=== PATIENT | female | born 1970 | race Native Hawaiian/Other Pacific Islander ===

== ENCOUNTER 2017-10-08 18:10 | Emergency (ER) | payer OTHER ==
[~2017-10-08] VITALS: Ht 172.7 cm; Wt 112.0 kg
[2017-10-08 18:10] VITALS: TEMP 98
[2017-10-08 18:38] LABS: PLATELET COUNT 304 K/uL (152-353)
[2017-10-08 18:44] LABS: POTASSIUM 3.6 mmol/L (3.6-5.2)
[2017-10-08 19:10] VITALS: BP 133/60
[2017-10-09] MEDS ORDERED: MEDROXYPROG150 MG/ML IM (03:52)
[2017-10-09] MEDS ORDERED: FLUOXETINE40 MG PO (03:53)
[2017-10-09] MEDS ORDERED: METF500T PO (03:54)
[2017-10-09] MEDS ORDERED: GEODON60 MG PO (03:54)
[2017-10-09] MEDS ORDERED: ARTIFICIA2 IO (03:56)
[2017-10-09] MEDS ORDERED: RISP1TAB PO (03:57)
[2017-10-09] MEDS ORDERED: OLANZAPINE15 M1 PO (03:58)
[2017-10-09] MEDS ORDERED: XALATAN0.005 % OP (03:59)
[2017-10-09] MEDS ORDERED: MAPAP325 MG PO ×2 (04:01→04:02)
[2017-10-09] MEDS ORDERED: LITHIUM CARBON300 MG PO (04:04)
[2017-10-09] MEDS ORDERED: LITHIUM CARB300 MG PO (04:05)
[2017-10-09] MEDS ORDERED: OMEPRAZOLE20 M1 PO (04:06)
[2017-10-09] MEDS ORDERED: WELLBUTRIN200 MG PO (04:08)
[2017-10-09] MEDS ORDERED: NEURONTIN 100M100 MG PO (04:09)
[2017-10-09] MEDS ORDERED: LAMICTAL100 MG PO (04:11)
[2017-10-09] MEDS ORDERED: OYSTER CALCIUM/1 TAB PO (04:11)
[2017-10-09] MEDS ORDERED: LIPITOR10 MG PO (04:12)
[2017-10-09] MEDS ORDERED: NOVOLIN R U-1001 ML SC (04:17)
[2017-10-22] MEDS ORDERED: LORA2INJ21 IM (09:48)
[2017-10-22] MEDS ORDERED: LAMO100T PO (09:48)
[2017-10-22] MEDS ORDERED: GABA100C2 PO (09:48)
[2017-10-22] MEDS ORDERED: BUPR150T PO (09:48)
[2017-10-22] MEDS ORDERED: ZIPR80CA PO (09:48)
[2017-10-22] MEDS ORDERED: OLANZAPINE10 MG PO (09:48)
[2017-10-22] MEDS ORDERED: MAGNSUS68 PO (09:48)
[2017-10-22] MEDS ORDERED: HALO5INJ3 IM (09:48)
== END 2017-10-08 19:10 | disposition other institution (70) ==
LOC: ED 18:10
DX: Z04.6 Encounter for general psychiatric examination, requested by authority (principal); R45.851 Suicidal ideations; F25.9 Schizoaffective disorder, unspecified
CPT/HCPCS: 36415; 80053; 81000; 85027; 93005; 99285

== ENCOUNTER 2018-10-18 17:15 | Emergency (ER) | payer OTHER ==
[~2018-10-18] VITALS: Ht 172.7 cm; Wt 92.5 kg
[~2018-10-18 17:15] MED LIST: ARTIFICIA2 IO; BUPR150T PO; FLUOXETINE40 MG PO; GABA100C2 PO; GEODON60 MG PO; HALO5INJ3 IM; LAMICTAL100 MG PO; LAMO100T PO; LIPITOR10 MG PO; LITHIUM CARB300 MG PO; LITHIUM CARBON300 MG PO; LORA2INJ21 IM; MAGNSUS68 PO; MAPAP325 MG PO; MEDROXYPROG150 MG/ML IM; METF500T PO; NEURONTIN 100M100 MG PO; NOVOLIN R U-1001 ML SC; OLANZAPINE10 MG PO; OLANZAPINE15 M1 PO; OMEPRAZOLE20 M1 PO; OYSTER CALCIUM/1 TAB PO; RISP1TAB PO; WELLBUTRIN200 MG PO; XALATAN0.005 % OP; ZIPR80CA PO
[2018-10-18 17:36] LABS: PLATELET COUNT 308 K/uL (152-353)
[2018-10-18 17:43] LABS: POTASSIUM 4.1 mmol/L (3.6-5.2)
[2018-10-18 18:35] VITALS: BP 155/84; TEMP 98.1
[2018-10-18] MEDS ORDERED: VENLAFAXINE150 M1 PO (21:55)
[2018-10-18] MEDS ORDERED: BENZ1TAB43 PO (21:56)
[2018-10-18] MEDS ORDERED: [UNRECOGNIZED DRUG - OTHER] PO (21:57)
[2018-10-18] MEDS ORDERED: HYDROXYZINE HYD50 MG PO (21:59)
== END 2018-10-18 18:35 | disposition other institution (70) ==
LOC: ED 17:15
PROVIDERS: Student in an Organized Health Care Education/Training Program
DX: F20.89 Other schizophrenia (principal); Z04.6 Encounter for general psychiatric examination, requested by authority
CPT/HCPCS: 80053; 80178; 81000; 85027; 93005; 99285

== ENCOUNTER 2019-01-13 17:15 | Emergency (ER) | payer OTHER ==
[~2019-01-13] VITALS: Ht 170.2 cm; Wt 127.0 kg
[~2019-01-13 17:15] MED LIST changes: +ARIPIPRAZOLE10 MG PO; +BENZ1TAB43 PO; +CARB200T42 PO; +CHOL100034 PO; +ESCI10TA PO; +HYDROXYZINE HYD50 MG PO; +LITHIUM CARB150 MG PO; +MULTTAB52 PO; +VENLAFAXINE150 M1 PO; +[UNRECOGNIZED DRUG - OTHER] PO
[2019-01-13 17:57] LABS: PLATELET COUNT 291 K/uL (152-353)
[2019-01-13 17:59] LABS: POTASSIUM 3.7 mmol/L (3.6-5.2)
[2019-01-13 18:20] VITALS: BP 136/79; TEMP 97.9
[2019-01-13] MEDS ORDERED: LAMICTAL200 MG PO (19:46)
[2019-01-13] MEDS ORDERED: FEXOFENADINE HC60 MG PO (19:47)
[2019-01-13] MEDS ORDERED: FIORICET 50-3001 CAP PO (19:49)
[2019-01-19] MEDS ORDERED: BENZ1TAB43 PO (08:21)
[2019-01-19] MEDS ORDERED: ZIPR20CA PO (08:23)
[2019-01-19] MEDS ORDERED: ZIPR80CA PO (08:24)
== END 2019-01-13 18:20 | disposition other institution (70) ==
LOC: ED 17:19
PROVIDERS: Emergency Medicine
DX: R45.851 Suicidal ideations (principal); F25.0 Schizoaffective disorder, bipolar type; Z04.6 Encounter for general psychiatric examination, requested by authority
CPT/HCPCS: 80053; 81000; 85027; 93005; 99285

== ENCOUNTER 2019-09-06 15:16 | Emergency (ER) | payer OTHER ==
[~2019-09-06] VITALS: Ht 170.2 cm; Wt 117.5 kg
[~2019-09-06 15:16] MED LIST changes: +ABILIFY MYCITE20 MG PO; +BUPROPION HYDR100 M2 PO; +FEXOFENADINE HC60 MG PO; +FIORICET 50-3001 CAP PO; +HYDR50CA21 PO; +LAMICTAL150 MG PO; +LAMICTAL200 MG PO; +LITH300C3 PO; +LITHIUM CARB300 M1 PO; +MELATONIN3 M1 PO; +SERT100T PO; +ZIPR20CA PO
[2019-09-06 15:37] LABS: PLATELET COUNT 287 K/uL (152-353)
[2019-09-06 15:47] LABS: POTASSIUM 3.8 mmol/L (3.6-5.2)
[2019-09-06 17:14] VITALS: BP 151/74; TEMP 98.7
[2019-09-06] MEDS ORDERED: VENL37.511 PO (18:36)
[2019-09-06] MEDS ORDERED: METF500T PO (18:38)
[2019-09-06] MEDS ORDERED: BENZ1TAB43 PO (18:39)
[2019-09-06] MEDS ORDERED: SEROQUEL50 MG PO (18:40)
[2019-09-06] MEDS ORDERED: SEROQUEL25 MG PO (18:41)
[2019-09-06] MEDS ORDERED: HYDR25CA25 PO (18:41)
[2019-09-06] MEDS ORDERED: ZIPR80CA PO (18:42)
== END 2019-09-06 17:14 | disposition other institution (70) ==
LOC: ED 15:16
PROVIDERS: Family Medicine
DX: Z04.6 Encounter for general psychiatric examination, requested by authority (principal); F91.8 Other conduct disorders; F20.89 Other schizophrenia; Z11.59 Encounter for screening for other viral diseases
CPT/HCPCS: 80053; 81000; 85027; 87635; 93005; 99283; U00003

== ENCOUNTER 2019-11-04 20:03 | Emergency (ER) | payer OTHER ==
[~2019-11-04] VITALS: Ht 165.1 cm; Wt 116.1 kg
[~2019-11-04 20:03] MED LIST changes: +HYDR25CA25 PO; +QUET100T2 PO; +QUET300T PO; +SEROQUEL25 MG PO; +SEROQUEL50 MG PO; +VENL37.511 PO
[2019-11-04 20:57] LABS: POTASSIUM 3.5 mmol/L (3.6-5.2)
[2019-11-04 20:58] LABS: PLATELET COUNT 314 K/uL (152-353)
[2019-11-04 21:45] VITALS: BP 145/80; TEMP 99.1
[2019-11-05] MEDS ORDERED: CLON0.5T36 PO (02:09)
[2019-11-05] MEDS ORDERED: ALLERGY10 M1 PO (02:33)
== END 2019-11-04 21:50 | disposition other institution (70) ==
LOC: ED 20:03
PROVIDERS: Family Medicine
DX: R46.89 Other symptoms and signs involving appearance and behavior (principal); F25.8 Other schizoaffective disorders; F22 Delusional disorders; Z11.59 Encounter for screening for other viral diseases; Z04.6 Encounter for general psychiatric examination, requested by authority
CPT/HCPCS: 36415; 80053; 81000; 85027; 87635; 93005; 99283; G2023; U0003

== ENCOUNTER 2020-09-13 13:12 | Emergency (ER) | payer OTHER ==
[~2020-09-13] VITALS: Ht 172.7 cm; Wt 123.8 kg
[~2020-09-13 13:12] MED LIST changes: +ALLERGY10 M1 PO; +CLON0.5T36 PO; +CLOZ100T PO; +VRAYLAR6 MG PO
[2020-09-13 13:46] LABS: PLATELET COUNT 295 K/uL (152-353)
[2020-09-13 13:47] LABS: POTASSIUM 3.6 mmol/L (3.6-5.2)
[2020-09-13 14:50] VITALS: BP 134/75; TEMP 98.1
[2020-09-13] MEDS ORDERED: LAMICTAL100 MG PO (15:32)
[2020-09-13] MEDS ORDERED: GNP MELATONIN MA5 MG PO (15:33)
[2020-09-13] MEDS ORDERED: MIRALAX17 GM PO (15:34)
[2020-09-13] MEDS ORDERED: MOBIC7.5 M1 PO (15:35)
[2020-09-13] MEDS ORDERED: PRAZ1CAP16 PO (15:36)
[2020-09-13] MEDS ORDERED: PANTOPRAZOLE 40MG TA PO (15:39)
[2020-09-13] MEDS ORDERED: FLUOXETINE20 M1 PO (15:40)
[2020-09-13] MEDS ORDERED: SENNA8.6 MG PO (15:40)
[2020-09-13] MEDS ORDERED: QUET100T2 PO (15:41)
[2020-09-13] MEDS ORDERED: SEROQUEL200 MG PO (15:42)
[2020-09-13] MEDS ORDERED: ZIPR20CA PO (15:45)
[2020-09-13] MEDS ORDERED: LITHIUM CARB450 MG PO (15:46)
[2020-09-13] MEDS ORDERED: CLON1TAB18 PO (15:48)
[2020-09-13] MEDS ORDERED: RISPERDAL4 MG PO (15:48)
[2020-09-13] MEDS ORDERED: CLARITIN10 MG PO (15:51)
[2020-09-13] MEDS ORDERED: TRAM50TA PO (15:53)
[2020-09-13] MEDS ORDERED: HYDR25CA25 PO (15:54)
== END 2020-09-13 14:50 | disposition still patient (30) ==
LOC: ED 13:12
PROVIDERS: Hospitalist
DX: F32.89 Other specified depressive episodes (principal); R45.851 Suicidal ideations; Z11.52 Encounter for screening for COVID-19; Z04.6 Encounter for general psychiatric examination, requested by authority
CPT/HCPCS: 80053; 80156; 81000; 85027; 87635; 93005; 96372; 99283; J1885; U0003

== ENCOUNTER 2021-01-11 15:12 | Emergency (ER) | payer OTHER ==
[~2021-01-11] VITALS: Ht 172.7 cm; Wt 120.7 kg
[~2021-01-11 15:12] MED LIST changes: +ABILIFY 10MG TAB PO; +CLARITIN10 MG PO; +CLON1TAB18 PO; +FLUOXETINE20 M1 PO; +GNP MELATONIN MA5 MG PO; +LITHIUM CARB450 MG PO; +MIRALAX17 GM PO; +MOBIC7.5 M1 PO; +NORTRIPTYLIN25 MG PO; +ONDA4TAB3 PO; +OXCARBAZEPIN300 MG PO; +PANTOPRAZOLE 40MG TA PO; +PRAZ1CAP16 PO; +RISPERDAL4 MG PO; +SENNA8.6 MG PO; +SEROQUEL200 MG PO; +TRAM50TA PO
[2021-01-11 15:17] VITALS: TEMP 97.5
[2021-01-11 15:41] LABS: PLATELET COUNT 271 K/uL (152-353)
[2021-01-11 16:09] LABS: POTASSIUM 3.7 mmol/L (3.6-5.2)
[2021-01-11 16:45] VITALS: BP 175/90
[2021-01-12] MEDS ORDERED: TRAZODONE HYDRO50 MG PO (06:04)
[2021-01-12] MEDS ORDERED: HALO5TAB10 PO (06:05)
[2021-01-12] MEDS ORDERED: HYDROXYZINE HYD25 MG PO (06:07)
[2021-01-12] MEDS ORDERED: QUETIAPINE100 MG PO (06:11)
[2021-01-12] MEDS ORDERED: RISPERDAL3 MG PO (06:12)
[2021-01-12] MEDS ORDERED: OLANZAPINE10 M2 PO (06:16)
[2021-01-12] MEDS ORDERED: CLON1TAB18 PO (09:12)
== END 2021-01-11 16:45 | disposition still patient (30) ==
LOC: ED 15:12
PROVIDERS: Hospitalist
DX: F25.8 Other schizoaffective disorders (principal); R44.0 Auditory hallucinations; Z11.52 Encounter for screening for COVID-19; Z04.6 Encounter for general psychiatric examination, requested by authority
CPT/HCPCS: 80053; 81000; 84484; 85027; 87635; 93005; 96372; 99283; J1815; U0003

== ENCOUNTER 2021-10-23 17:17 | Emergency (ER) | payer OTHER ==
[~2021-10-23] VITALS: Ht 160 cm; Wt 125.2 kg
[~2021-10-23 17:17] MED LIST changes: +HALO5TAB10 PO; +HYDROXYZINE HYD25 MG PO; +OLANZAPINE10 M2 PO; +PALI3TAB PO; +PRAZOSIN HCL1 MG PO; +QUETIAPINE100 MG PO; +RISPERDAL3 MG PO; +TRAZODONE HYDRO50 MG PO
[2021-10-23 17:31] VITALS: BP 161/82; TEMP 98.9
[2021-10-23 18:23] LABS: PLATELET COUNT 295 K/uL (152-353)
[2021-10-23 18:28] LABS: POTASSIUM 3.8 mmol/L (3.6-5.2)
[2021-10-23] MEDS ORDERED: CLARITIN10 M1 PO (21:42)
[2021-10-23] MEDS ORDERED: HALO5TAB10 PO (21:43)
[2021-10-23] MEDS ORDERED: MIRALAX17 GM PO (21:43)
[2021-10-23] MEDS ORDERED: MOBIC7.5 M1 PO (21:44)
[2021-10-23] MEDS ORDERED: MULTIVITAMI1 PO (21:44)
[2021-10-23] MEDS ORDERED: PALIPERIDONE ER9 MG PO (21:45)
[2021-10-23] MEDS ORDERED: PANTOPRAZOLE 40MG TA PO (21:46)
[2021-10-23] MEDS ORDERED: PRAZOSIN HYDROCH5 MG PO (21:47)
[2021-10-23] MEDS ORDERED: SENNA LAX8.6 MG PO (21:47)
[2021-10-23] MEDS ORDERED: TRAZODONE HYDR100 MG PO (21:48)
[2021-10-23] MEDS ORDERED: ARTIFICIA7 OPTH (21:49)
[2021-10-23] MEDS ORDERED: BENZTROPINE2 MG PO (21:50)
[2021-10-23] MEDS ORDERED: CLON1TAB18 PO (21:50)
[2021-10-23] MEDS ORDERED: METFORMIN HYDR500 M1 PO (21:51)
[2021-10-23] MEDS ORDERED: TRILEPTAL300 MG PO (21:52)
[2021-10-23] MEDS ORDERED: DICLOFENAC SODIUM1 % TOP (21:54)
[2021-10-23] MEDS ORDERED: [UNRECOGNIZED DRUG - OTHER] PO (21:55)
[2021-10-23] MEDS ORDERED: TRAM50TA PO (21:56)
== END 2021-10-23 19:08 | disposition still patient (30) ==
LOC: ED 17:17
PROVIDERS: Emergency Medicine Emergency Medical Services
DX: R45.851 Suicidal ideations (principal); F25.8 Other schizoaffective disorders; Z11.52 Encounter for screening for COVID-19; Z04.6 Encounter for general psychiatric examination, requested by authority
CPT/HCPCS: 80053; 81002; 85027; 87635; 93005; 99284; U0003

== ENCOUNTER 2022-03-26 21:23 | Emergency (ER) | payer OTHER ==
[~2022-03-26] VITALS: Ht 170.2 cm; Wt 116.1 kg
[~2022-03-26 21:23] MED LIST changes: +ACET-206 PO; +ARTIFICIA7 OPTH; +Artificial Tears 0.2 OPTH; +BENZTROPINE2 MG PO; +CLARITIN10 M1 PO; +CONGENTIN 1MG TAB PO; +DICLOFENAC SODIUM1 % TOP; +LORA10TA3 PO; +MELOXICAM7.5 MG PO; +METFORMIN HYDR500 M1 PO; +MULTIVITAMI1 PO; +PALIPERIDONE ER9 MG PO; +PRAZOSIN HYDROCH5 MG PO; +SENNA LAX8.6 MG PO; +SERT50TA PO; +TRAZ50TA36 PO; +TRAZODONE HYDR100 MG PO; +TRILEPTAL300 MG PO; +Voltaren GEL 1% 100G TOP; +[UNRECOGNIZED DRUG - OTHER] PO
[2022-03-26 21:30] VITALS: TEMP 97.6
[2022-03-26 22:43] LABS: PLATELET COUNT 257 K/uL (152-353)
[2022-03-27 00:05] VITALS: BP 150/76
[2022-03-27] MEDS ORDERED: HALDOL DECANOATE IM (09:21)
[2022-03-27] MEDS ORDERED: ZOLOFT25 MG PO (09:26)
[2022-03-27] MEDS ORDERED: LORA1TAB17 PO (09:27)
[2022-03-27] MEDS ORDERED: BENZTROPINE2 MG PO (09:28)
[2022-03-27] MEDS ORDERED: GEODON60 MG PO (09:31)
[2022-03-27] MEDS ORDERED: HALO5TAB10 PO (09:32)
[2022-03-27] MEDS ORDERED: OXCARBAZEPIN600 MG PO (09:33)
[2022-03-27] MEDS ORDERED: PRIMIDONE50 M1 PO (09:34)
[2022-03-27] MEDS ORDERED: BENADRYL ALLERG25 M2 PO (09:35)
[2022-03-27] MEDS ORDERED: [UNRECOGNIZED DRUG - OTHER] MT (09:36)
[2022-03-27] MEDS ORDERED: CLON0.5T36 PO (09:36)
[2022-03-27] MEDS ORDERED: TYLENOL325 MG PO (09:38)
== END 2022-03-27 00:05 | disposition still patient (30) ==
LOC: ED 21:23
PROVIDERS: Emergency Medicine Emergency Medical Services
DX: R45.851 Suicidal ideations (principal); F20.89 Other schizophrenia; Z11.52 Encounter for screening for COVID-19; Z04.6 Encounter for general psychiatric examination, requested by authority
CPT/HCPCS: 80053; 81002; 85027; 87635; 93005; 99283; U0003

== ENCOUNTER 2022-07-16 19:12 | Emergency (ER) | payer OTHER ==
[~2022-07-16] VITALS: Ht 170.2 cm; Wt 114.3 kg
[2022-07-16 19:12] VITALS: BP 155/90; TEMP 97.2
[~2022-07-16 19:12] MED LIST changes: +ATOR20TA2 PO; +BENADRYL ALLERG25 M2 PO; +DIPH25CA90 PO; +FOLI1TAB26 PO; +HALDOL DECANOATE IM; +HALO50IN4 IM; +LORA0.5T17 PO; +LORA1TAB17 PO; +MIRALAX 17GM PAK PO; +OLANZAPINE5 MG PO; +PRIM50TA4 PO; +PRIMIDONE50 M1 PO; -TRAZODONE HYDR100 MG PO; +TYLENOL325 MG PO; +ZOLOFT25 MG PO; +[UNRECOGNIZED DRUG - OTHER] MT
[2022-07-16 19:40] LABS: PLATELET COUNT 334 K/uL (152-353)
[2022-07-16 19:43] LABS: POTASSIUM 3.7 mmol/L (3.6-5.2)
[2022-07-17] MEDS ORDERED: LIPITOR20 MG PO (07:37)
[2022-07-17] MEDS ORDERED: FOLI1TAB26 PO (07:38)
[2022-07-17] MEDS ORDERED: ZIPR20IN IM (07:40)
[2022-07-17] MEDS ORDERED: HALO5INJ3 IM (07:44)
[2022-07-17] MEDS ORDERED: LORA0.5T17 PO (07:45)
[2022-07-17] MEDS ORDERED: MILK OF MA400 MG/5 M PO (07:47)
[2022-07-17] MEDS ORDERED: ZYPREXA ZYDI10 MG PO (07:48)
[2022-07-17] MEDS ORDERED: PRAZ1CAP16 PO (07:50)
[2022-07-17] MEDS ORDERED: QUETIAPINE100 MG PO (07:52)
[2022-07-17] MEDS ORDERED: SERT50TA PO (07:53)
== END 2022-07-16 20:20 | disposition still patient (30) ==
LOC: ED 19:12
PROVIDERS: Emergency Medicine
DX: F31.9 Bipolar disorder, unspecified (principal)
CPT/HCPCS: 80053; 81002; 85027; 87635; 93005; 99283; U0003

== ENCOUNTER 2022-08-15 14:29 | Emergency (ER) | payer OTHER ==
[~2022-08-15] VITALS: Ht 170.2 cm; Wt 114.3 kg
[2022-08-15 14:29] VITALS: BP 131/77; TEMP 97.3
[~2022-08-15 14:29] MED LIST changes: +LIPITOR20 MG PO; +MILK OF MA400 MG/5 M PO; +ZIPR20IN IM; +ZYPREXA ZYDI10 MG PO
[2022-08-15 15:16] LABS: PLATELET COUNT 266 K/uL (152-353)
[2022-08-15 15:25] LABS: POTASSIUM 3.7 mmol/L (3.6-5.2)
[2022-08-15] MEDS ORDERED: HALO50IN4 IM (17:27)
[2022-08-15] MEDS ORDERED: PALIPERIDONE E1.5 MG PO (17:33)
[2022-08-15] MEDS ORDERED: SERT50TA PO (17:40)
[2022-08-15] MEDS ORDERED: ZOLOFT25 MG PO (17:41)
[2022-08-15] MEDS ORDERED: TRAZ100T PO (17:44)
[2022-08-15] MEDS ORDERED: JUST TEARS OPTH (17:50)
[2022-08-15] MEDS ORDERED: METF500T PO (17:52)
[2022-08-15] MEDS ORDERED: ZYPREXA ZYDI5 MG PO (18:02)
[2022-08-15] MEDS ORDERED: HALO5INJ3 IM (18:06)
[2022-08-28] MEDS ORDERED: Atorvastatin Calcium PO (11:35)
[2022-08-28] MEDS ORDERED: ACET-206 PO (11:35)
[2022-08-28] MEDS ORDERED: Voltaren GEL 1% 100G TOP (11:35)
[2022-08-28] MEDS ORDERED: Artificial Tears 0.2 OPTH (11:35)
[2022-08-28] MEDS ORDERED: FOLI1TAB26 PO (11:35)
[2022-08-28] MEDS ORDERED: HALO50IN4 IM (11:35)
[2022-08-28] MEDS ORDERED: DULCOLAX 5MG TAB PO (11:35)
[2022-08-28] MEDS ORDERED: LORA0.5T17 PO (11:36)
[2022-08-28] MEDS ORDERED: MAGNSUS68 PO (11:36)
[2022-08-28] MEDS ORDERED: LORA10TA3 PO (11:36)
[2022-08-28] MEDS ORDERED: MELOXICAM7.5 MG PO (11:37)
[2022-08-28] MEDS ORDERED: METF500T PO (11:37)
[2022-08-28] MEDS ORDERED: MULTTAB52 PO (11:37)
[2022-08-28] MEDS ORDERED: PRAZOSIN HCL1 MG PO (11:38)
[2022-08-28] MEDS ORDERED: OLANZAPINE5 MG PO (11:38)
[2022-08-28] MEDS ORDERED: PANTOPRAZOLE 40MG TA PO (11:38)
[2022-08-28] MEDS ORDERED: MIRALAX 17GM PAK PO (11:38)
[2022-08-28] MEDS ORDERED: OXCARBAZEPIN300 MG PO (11:38)
[2022-08-28] MEDS ORDERED: PRIM50TA4 PO (11:40)
[2022-08-28] MEDS ORDERED: SERT50TA PO (11:41)
[2022-08-28] MEDS ORDERED: TRAZ50TA36 PO (11:42)
== END 2022-08-15 15:45 | disposition still patient (30) ==
LOC: ED 14:29
PROVIDERS: Family Medicine
DX: R45.851 Suicidal ideations (principal); F32.A Depression, unspecified; Z02.79 Encounter for issue of other medical certificate
CPT/HCPCS: 80053; 81002; 85027; 87635; 93005; 99283; U0003